=== PATIENT | female | born 1965 | race African-American/Black ===

== ENCOUNTER 2020-05-29 18:49 | Emergency (ER) | payer SELFPAY ==
[2020-05-29] MEDS ORDERED: BAMLANIVIMAB 700 MG in SODIUM CHLORIDE 250 ML IVPB ONE (19:09)
[2020-05-29 19:19] VITALS: BMI 33.3
[2020-05-29 20:24] LABS: HEMATOCRIT 38.2 % (32.4-45.2); HEMOGLOBIN 12.8 GM/dL (10.7-15.3); MCH 29.3 pg (25.7-33.7); MCHC 33.5 g/dl (32.0-36.0); MEAN CELL VOLUME 87.6 fl (80-96); MEAN PLT VOLUME 9.9 fl (7.5-11.1); PLATELET COUNT 207 K/MM3 (134-434); RBC 4.36 M/mm3 (3.60-5.2); WHITE BLOOD COUNT 4.6 K/mm3 (4.0-10.0)
[2020-05-29 20:34] LABS: POTASSIUM 3.8 mmol/L (3.5-5.1)
[2020-05-29 20:37] LABS: BLOOD UREA NITROGEN 11.4 mg/dL (7-18); CALCIUM 8.8 mg/dL (8.5-10.1)
[2020-05-29 22:52] VITALS: BP 125/65; PULSE 92; TEMP 99
== END 2020-05-29 23:13 | disposition home or self-care (01) ==
LOC: JER 18:49 → JCOVINFU 18:49
DX: U07.1 COVID-19 (principal)
CPT/HCPCS: 36415; 71046-TC-FY; 80048; 85027; 99284-25; M0239; Q0239